=== PATIENT | male | born 1960 | race Caucasian/White ===

== ENCOUNTER → 2025-01-07 | Outpatient (CLI) | payer BC, SELFPAY ==
--- NOTE | 2025-01-07 16:42 | RAD_ITS ---
PROCEDURE: ORBITS FOR FOREIGN BODY 01/07/2025 REASON FOR EXAM: MRI CLEARANCE TECHNIQUE: Procedure Code: [id number]. Modality: DX Procedure: ORBITS FOR FOREIGN BODY COMPARISON: None. FINDINGS: Bones: No acute fractures. Sinuses: Clear. No air-fluid levels. Additional findings: No radiopaque foreign body. RAD/Orbits for Foreign Body IMPRESSION: No visible facial bone fractures. No radiopaque foreign body. Reading Location: [facility]
--- NOTE | 2025-01-07 16:55 | MRI_ITS ---
PROCEDURE: SPINE LUMBAR (ROUTINE) 01/07/2025 REASON FOR EXAM: RADICULOPATHY SACRAL AND SACROCOCCYGEAL REGION TECHNIQUE: Procedure Code: MRISPL Modality: MR Procedure: SPINE LUMBAR (ROUTINE) COMPARISON: None. FINDINGS: Vertebrae: Preserved in height and signal. Alignment: Unremarkable. Conus Medullaris: Unremarkable. L1-2: No foraminal or canal stenosis. L2-3: Disc desiccation. Facet joint arthropathy. Mild inferior bilateral foramina stenosis. No significant canal stenosis. L3-4: Disc bulge. Facet joint arthropathy. Ligamentum flavum hypertrophy. Mild inferior bilateral foramina stenosis. Mild canal stenosis. L4-5: Disc bulge asymmetric to the left with superimposed 3 mm left foraminal herniation. Facet joint arthropathy. Severe narrowing of the left more than right foramina. Severe canal stenosis. L5-S1: Disc bulge with superimposed left extraforaminal disc herniation measures 5 mm. Facet joint arthropathy. Severe narrowing of the left foramina. Moderate narrowing of the right foramina. No significant canal stenosis. Sacrum: Unremarkable. MRI/Spine Lumbar (Routine) IMPRESSION: Degenerate changes predominantly for severe canal stenosis and severe left fora chon stenosis at L4-L5 from disc bulge, facet joint arthropathy and left foraminal herniation. Severe bilateral foramina stenosis at L5-S1 with potential abutment upon the ex iting bilateral L5 nerves. Reading Location: [facility]
== END | disposition home or self-care (01) ==
LOC: MRI 15:49
PROVIDERS: PCP Internal Medicine; Referring Provider Anesthesiology Pain Medicine; Visit Provider Anesthesiology Pain Medicine
DX: M54.16 Radiculopathy, lumbar region (principal)
CPT/HCPCS: 70030; 72148